=== PATIENT | female | born 1930 | race Caucasian/White ===

== ENCOUNTER → 2017-02-28 | Outpatient (REF) ==
[~2017-02-28] MED LIST: ARICEPT 5MG PO; BENICAR; CALCIUM600 M2 PO; FENTANYL 25 MCG TOP; FERROUS SU325 MG/TAB PO; FOLIC ACID PO; FORTEO SC; FORTEO250 MCG/ML SC; FOSAMAX5 MG; IRON325 M1 PO; LEVAQUIN 2250 MG/TAB PO; LORTAB 5/500 501 TAB; MELOXICAM; MELOXICAM15 MG PO; MUCINEX 60600 MG/TAB PO; MUCINEX D 600 M1 TER PO; NORCO 325 MG-51 TAB PO; PRINCIPEN500 MG PO; PRINIVIL10 MG PO; ROCEPHIN1 GM IV; SEPTRA DS 8001 TAB PO; SIMVASTATIN10 MG PO; TYLENOL 500MG500 MG PO; TYLENOL EXTRA500 M1 PO; ULTRAM 50MG TAB50 MG; ULTRAM 50MG TAB50 MG PO; VITAMIN C500 MG PO; VITAMIN D1000 IU PO; ZOCOR40 MG PO; [UNRECOGNIZED DRUG - REMARK]
[2017-02-28 14:30] LABS: COLLECTION METHOD CLEAN CATCH
[2017-02-28 14:43] LABS: MUCOUS Present /lpf; PH 6 (5-8); SQUAMOUS EPITHELIAL 0-2 /hpf; URINE APPEARANCE Clear; URINE BACTERIA Rare /hpf; URINE BILIRUBIN Negative (NEGATIVE); URINE BLOOD Negative (NEGATIVE); URINE COLOR Yellow; URINE GLUCOSE Negative (NEGATIVE); URINE KETONE Negative (NEGATIVE); URINE LEUKOCYTE ESTERASE Negative (NEGATIVE); URINE PROTEIN(semi-quant) Negative (NEGATIVE); URINE RBC 0-2 /hpf; URINE UROBILINOGEN Negative (NEGATIVE)
== END ==
LOC: ZLAB.STJ 14:28
PROVIDERS: Family Medicine
DX: N39.0 Urinary tract infection, site not specified (principal)

== ENCOUNTER 2017-04-26 07:43 | Emergency (ER) | payer MEDICARE, BC ==
[~2017-04-26 07:43] MED LIST changes: +ZOCOR 40MG40 MG; -ZOCOR40 MG PO
[2017-04-26 07:53] VITALS: TEMP 97.9
[2017-04-26 08:52] LABS: BASO % 0.2 % (0.0-2.0); GRAN # 7.8 (1.4-6.5); GRAN % 87.3 % (42.2-75.2); LYMPH # 0.7 (1.2-3.4); LYMPH % 7.9 % (20.0-51.0); MEAN CELL VOLUME 92 fl (80.0-100.0); MEAN CORPUSCULAR HGB CONC 34 g/dl (33.0-37.0); MEAN PLATELET VOLUME 9.3 fl (7.4-10.4); MONO # 0.4 (0.1-0.6); MONO % 4.1 % (1.7-9.3); PLATELET COUNT 178 K/mm3 (130-400); RED BLOOD COUNT 3.67 M/mm3 (4.10-5.30); REDCELL DISTRIBUTION WIDTH-CV 11.9 % (11.5-14.5)
[2017-04-26 08:54] LABS: HEMATOCRIT 33.7 % (37.0-47.0); HEMOGLOBIN 11.4 g/dl (12.5-16.0); MEAN CORPUSCULAR HEMOGLOBIN 31 pg (27.0-31.0)
[2017-04-26 09:01] LABS: BILIRUBIN,TOTAL 0.6 mg/dL (0.0-1.0); CALCIUM 9.6 mg/dL (8.4-10.2); CREATININE, serum 0.68 mg/dL (0.52-1.25); POTASSIUM 3.1 mmol/L (3.4-5.0); TOTAL PROTEIN 6.8 gm/dL (6.4-8.2)
[2017-04-26 10:17] LABS: COLLECTION METHOD CATHETER
[2017-04-26 10:33] LABS: PH 7 (5-8); SQUAMOUS EPITHELIAL None Seen /hpf; URINE APPEARANCE Clear; URINE BACTERIA Rare /hpf; URINE BILIRUBIN Negative (NEGATIVE); URINE BLOOD 1+ (NEGATIVE); URINE COLOR Straw; URINE GLUCOSE Negative (NEGATIVE); URINE KETONE Negative (NEGATIVE); URINE LEUKOCYTE ESTERASE Negative (NEGATIVE); URINE NITRATE Positive (NEGATIVE); URINE PROTEIN(semi-quant) Negative (NEGATIVE); URINE RBC 0-2 /hpf; URINE UROBILINOGEN Negative (NEGATIVE)
[2017-04-26] MEDS ORDERED: MACROBID 1100 MG/CAP PO (11:21)
[2017-04-26 11:46] VITALS: BP 160/67; PULSE 76
== END 2017-04-26 11:45 | disposition home or self-care (01) ==
LOC: COL.ER 07:43
PROVIDERS: Emergency Medicine
DX: S09.90XA Unspecified injury of head, initial encounter (principal); S30.0XXA Contusion of lower back and pelvis, initial encounter; S50.812A Abrasion of left forearm, initial encounter; S20.222A Contusion of left back wall of thorax, initial encounter; S20.221A Contusion of right back wall of thorax, initial encounter; R26.81 Unsteadiness on feet; F03.90 Unspecified dementia, unspecified severity, without behavioral disturbance, psychotic disturbance, mood disturbance, and anxiety; M84.48XK Pathological fracture, other site, subsequent encounter for fracture with nonunion; M84.454K Pathological fracture, pelvis, subsequent encounter for fracture with nonunion; W19.XXXA Unspecified fall, initial encounter; Y92.10 Unspecified residential institution as the place of occurrence of the external cause; M81.0 Age-related osteoporosis without current pathological fracture
CPT/HCPCS: J1885; J7030

== ENCOUNTER 2017-05-31 07:45 | Emergency (ER) | payer MEDICARE, BC ==
[~2017-05-31] VITALS: Ht 162.6 cm; Wt 52.3 kg
[2017-05-31 07:45] VITALS: TEMP 96.8
[~2017-05-31 07:45] MED LIST changes: +MACROBID 1100 MG/CAP PO
[2017-05-31 08:12] LABS: BASO % 0.2 % (0.0-2.0); EOS % 0.1 % (0-4.0); GRAN # 7.1 (1.4-6.5); GRAN % 71.5 % (42.2-75.2); HEMATOCRIT 39.9 % (37.0-47.0); HEMOGLOBIN 13.2 g/dl (12.5-16.0); LYMPH # 2.3 (1.2-3.4); LYMPH % 22.5 % (20.0-51.0); MEAN CELL VOLUME 93 fl (80.0-100.0); MEAN CORPUSCULAR HEMOGLOBIN 31 pg (27.0-31.0); MEAN CORPUSCULAR HGB CONC 33 g/dl (33.0-37.0); MEAN PLATELET VOLUME 9.7 fl (7.4-10.4); MONO # 0.5 (0.1-0.6); MONO % 5.3 % (1.7-9.3); PLATELET COUNT 205 K/mm3 (130-400); RED BLOOD COUNT 4.28 M/mm3 (4.10-5.30); REDCELL DISTRIBUTION WIDTH-CV 12.1 % (11.5-14.5)
[2017-05-31 08:22] LABS: ALBUMIN 4.4 gm/dL (3.5-5.0); BILIRUBIN,TOTAL 0.7 mg/dL (0.0-1.0); CALCIUM 9.5 mg/dL (8.4-10.2); CREATININE, serum 0.63 mg/dL (0.52-1.25); POTASSIUM 3.2 mmol/L (3.4-5.0); TOTAL PROTEIN 7.6 gm/dL (6.4-8.2)
[2017-05-31 08:38] LABS: COLLECTION METHOD CATHETER
[2017-05-31 08:48] LABS: URINE COLOR Yellow
[2017-05-31 08:49] LABS: PH 6 (5-8); URINE APPEARANCE Hazy; URINE BILIRUBIN Negative (NEGATIVE); URINE BLOOD Negative (NEGATIVE); URINE GLUCOSE Negative (NEGATIVE); URINE KETONE Trace (NEGATIVE); URINE LEUKOCYTE ESTERASE Trace (NEGATIVE); URINE NITRATE Positive (NEGATIVE); URINE PROTEIN(semi-quant) 2+ (NEGATIVE); URINE UROBILINOGEN Negative (NEGATIVE)
[2017-05-31 08:52] LABS: MUCOUS Present /lpf; SQUAMOUS EPITHELIAL None Seen /hpf; URINE BACTERIA Rare /hpf
[2017-05-31] MEDS ORDERED: CEFTIN500 MG PO (12:03)
[2017-05-31 12:16] VITALS: BP 169/74; PULSE 64
== END 2017-05-31 13:27 | disposition home or self-care (01) ==
LOC: COL.ER 07:45
PROVIDERS: Nurse Practitioner
DX: S00.83XA Contusion of other part of head, initial encounter (principal); N39.0 Urinary tract infection, site not specified; F03.90 Unspecified dementia, unspecified severity, without behavioral disturbance, psychotic disturbance, mood disturbance, and anxiety; M81.0 Age-related osteoporosis without current pathological fracture; Z87.891 Personal history of nicotine dependence; Z87.81 Personal history of (healed) traumatic fracture; Z98.51 Tubal ligation status; Z96.642 Presence of left artificial hip joint; Z98.890 Other specified postprocedural states; W19.XXXA Unspecified fall, initial encounter; Y92.121 Bathroom in nursing home as the place of occurrence of the external cause

== ENCOUNTER 2018-11-17 13:39 | Inpatient (IN) | payer MEDICARE, BC ==
[~2018-11-17] VITALS: Ht 162.6 cm; Wt 54.5 kg
[~2018-11-17 13:39] MED LIST changes: +CEFTIN500 MG PO
[2018-11-17 14:29] LABS: HEMATOCRIT 39.5 % (37.0-47.0); HEMOGLOBIN 13.3 g/dl (12.5-16.0); MEAN CELL VOLUME 93 fl (80.0-100.0); MEAN CORPUSCULAR HEMOGLOBIN 31 pg (27.0-31.0); MEAN CORPUSCULAR HGB CONC 34 g/dl (33.0-37.0); MEAN PLATELET VOLUME 9.2 fl (7.4-10.4); PLATELET COUNT 245 K/mm3 (130-400); RED BLOOD COUNT 4.27 M/mm3 (4.10-5.30); REDCELL DISTRIBUTION WIDTH-CV 12.2 % (11.5-14.5)
[2018-11-17 14:48] LABS: ALANINE AMINOTRANSFERASE < 6 U/L (9-52); ALBUMIN 4.4 gm/dL (3.5-5.0); ALKALINE PHOSPHATASE 76 U/L (50-136); ANION GAP 16 mmol/L (7-16); AST,SGOT 24 U/L (15-37); BILIRUBIN,TOTAL 0.7 mg/dL (0.0-1.0); BLOOD UREA NITROGEN 34 mg/dL (7-17); C-REACTIVE PROTEIN 2.5 mg/dL (0.0-0.9); CALCIUM 10.4 mg/dL (8.4-10.2); CARBON DIOXIDE 28 mmol/L (22-30); CHLORIDE 100 mmol/L (98-107); GLUCOSE 200 mg/dL (74-106); POTASSIUM 3.9 mmol/L (3.4-5.0); SODIUM 144 mmol/L (137-145); TOTAL PROTEIN 7.8 gm/dL (6.4-8.2)
[2018-11-17 15:25] LABS: GASTROCCULT POSITIVE
[2018-11-17 15:32] LABS: pH GASTRIC CONTENTS 4
[2018-11-17 15:45] LABS: COLLECTION METHOD CATHETER
[2018-11-17 15:53] LABS: BAND 2 % (0-10); LYMPHOCYTE 3 % (20.0-51.0); NEUTROPHILS 89 % (42.0-75.2); PLATELET ESTIMATE NORMAL (NORMAL)
[2018-11-17 16:12] LABS: MUCOUS Present /lpf; PH 5 (5-8); URINE APPEARANCE Cloudy; URINE BACTERIA None Seen /hpf; URINE BILIRUBIN Negative (NEGATIVE); URINE BLOOD 1+ (NEGATIVE); URINE COLOR Amber; URINE GLUCOSE 1+ (NEGATIVE); URINE KETONE Trace (NEGATIVE); URINE LEUKOCYTE ESTERASE Trace (NEGATIVE); URINE NITRATE Negative (NEGATIVE); URINE PROTEIN(semi-quant) 2+ (NEGATIVE); URINE UROBILINOGEN Negative (NEGATIVE)
[2018-11-17 18:20] VITALS: BP 177/76; PULSE 85; TEMP 99.2
[2018-11-17] MEDS ORDERED: FOSAMAX 70MG TA70 MG PO (19:31)
[2018-11-17] MEDS ORDERED: TYLENOL 8 HR PO (19:36)
[2018-11-17] MEDS ORDERED: COLACE 100100 MG/CAP PO (19:37)
[2018-11-17] MEDS ORDERED: DITROPAN XL10 MG PO (19:38)
[2018-11-17] MEDS ORDERED: ARICEPT10 MG PO (19:39)
[2018-11-17] MEDS ORDERED: FERRO-TIME325 MG PO (19:41)
[2018-11-17] MEDS ORDERED: LEADER CLE17 GM/Dose PO (19:42)
[2018-11-17] MEDS ORDERED: XALATAN EYE DROPS OD (19:49)
[2018-11-17] MEDS ORDERED: PHENERGAN25 MG RC (19:50)
[2018-11-17 20:00] VITALS: BP 185/87; PULSE 96; TEMP 97.7
--- NOTE | 2018-11-17 22:46 | NUR ---
5 PAGE HISTORY ASSESSMENT COMPLETED ABLE WITH PT'S DEMENTIA. PT HAS HAD ONE DARK TARRY EMESIS SINCE ADMISSION. MORPHINE ORDER OBTAINED FOR PAIN PT DID REPEAT, "IT HURTS."
[2018-11-17 23:48] VITALS: BP 150/71; PULSE 82; TEMP 97.8
[2018-11-18 03:41] VITALS: BP 138/51; PULSE 81; TEMP 98.3
[2018-11-18 06:27] LABS: BASO % 0.1 % (0.0-2.0); GRAN # 10.9 (1.4-6.5); LYMPH # 1.4 (1.2-3.4); LYMPH % 10.9 % (20.0-51.0); MEAN CELL VOLUME 97 fl (80.0-100.0); MEAN CORPUSCULAR HGB CONC 33 g/dl (33.0-37.0); MEAN PLATELET VOLUME 9.5 fl (7.4-10.4); MONO # 0.8 (0.1-0.6); MONO % 5.8 % (1.7-9.3); PLATELET COUNT 178 K/mm3 (130-400); RED BLOOD COUNT 2.81 M/mm3 (4.10-5.30); REDCELL DISTRIBUTION WIDTH-CV 12.4 % (11.5-14.5)
[2018-11-18 06:40] LABS: ALANINE AMINOTRANSFERASE < 6 U/L (9-52); ALBUMIN 2.7 gm/dL (3.5-5.0); ALKALINE PHOSPHATASE 38 U/L (50-136); ANION GAP 7 mmol/L (7-16); AST,SGOT 18 U/L (15-37); BILIRUBIN,TOTAL 0.3 mg/dL (0.0-1.0); BLOOD UREA NITROGEN 46 mg/dL (7-17); CARBON DIOXIDE 25 mmol/L (22-30); CHLORIDE 112 mmol/L (98-107); CREATININE, serum 0.87 (0.52-1.25); GLUCOSE 123 mg/dL (74-106); MAGNESIUM 1.8 mg/dL (1.6-2.3); PHOSPHOROUS 2.3 mg/dL (2.5-4.5); POTASSIUM 3.6 mmol/L (3.4-5.0); SODIUM 143 mmol/L (137-145); TOTAL PROTEIN 5.4 gm/dL (6.4-8.2)
[2018-11-18 06:49] LABS: HEMATOCRIT 27.2 % (37.0-47.0); HEMOGLOBIN 8.9 g/dl (12.5-16.0); MEAN CORPUSCULAR HEMOGLOBIN 32 pg (27.0-31.0)
[2018-11-18 07:17] VITALS: BP 128/74; PULSE 86; TEMP 98.6
[2018-11-18 11:12] VITALS: BP 140/56; PULSE 68; TEMP 98.1
--- NOTE | 2018-11-18 11:25 | NUR ---
SW met with the patient and her sons Juliocesar and Dragan to discuss a discharge plan. The pt was sleeping and Juliocesar responded to assessment questions. The pt lives at [facility] in room 12. The pt receives assistance with all ADLs and has a walker; son reports she walk slowly and not very far before she gets winded. The pt's PCP is Jcarlos Carreno APRN and pt receives medications from [facility]. The pt does have advanced directives in the EMR. The pt's sons and DPOA-HCs will discuss pt's discharge plan then inform the team of decision. SW will continue to follow to assist with discharge recommendations. DPOA for HC:1) Juliocesar 2)Dragan 3) Kale
--- NOTE | 2018-11-18 11:27 | NUR ---
First visit from the manager technical support. No needs right now.
--- NOTE | 2018-11-18 16:43 | NUR ---
CAPRI spoke to the pt's DPOA-HCs regarding comfort care. The pt's DPOA-HCs chose to have the pt go to the [facility]. CAPRI faxed the referral and spoke with Odilon at [facility]. Odilon reports we need to know which physician follow. CAPRI contacted the pt's physician office. CAPRI will follow up tomorrow; nurse practicioner was no longer in the office. CAPRI left message. CAPRI will continue to follow.
--- NOTE | 2018-11-18 18:00 | NUR ---
Patient has been resting most the day. She has not been trying to get or seems to be any pain. Her family hae been at bedside all day. No vomiting this shift. Her family has decided to have her placed on comfort care and discharge with Hospice tomorrow. Patient for most the has been sleeping. She has been alert a few times but unable to have a conversation or answer questions. No other changes at this time. Call light within reach.
--- NOTE | 2018-11-18 20:00 | NUR ---
PATIENT IS CONFUSED. ADMITED FOR SBO & GI BLEED. NO BLOODY EMESIS OR STOOL NOTED AT THIS TIME. PATIENT INCONTINENT OF BOWL/BLADDER, BRIEF INPLACE. VSS. PATIENT SEEMS RESTLESS. GAVE PRN ROXINOL. SON AT BEDSIDE. PATIENT IS ON COMFORT CARES WITH PLANS TO TRANSFER TO HOSPICE HOUSE TOMORROW. DNR. LEFT FORARM IV. HEAD TO TOE ASSESSMENT COMPLETE. PATIENT CHANGED AND REPOSITIONED. CALL LIGHT IN REACH. BED ALARM ON. NO OTHER NEEDS. SON PLANS TO STAY THE NIGHT.
[2018-11-18 20:42] VITALS: BP 144/51; PULSE 72; TEMP 97.5
--- NOTE | 2018-11-19 09:02 | NUR ---
CAPRI contacted the pt's PCP about following care at the [facility]. The nurse reports that she would like to ask if [facility] physician would follow pt care. CAPRI contacted Odilon at the [facility]. Odilon advised CAPRI that she would fax pt record to physician. CAPRI will continue to follow.
[2018-11-19] MEDS ORDERED: TYLENOL SU650 MG/SUP RC (10:45)
[2018-11-19] MEDS ORDERED: RT ALBUTER2.5 MG/0.5 IH (10:45)
[2018-11-19] MEDS ORDERED: DULCOLAX S10 MG/SUPP RC (10:50)
[2018-11-19] MEDS ORDERED: ZOFRAN ODT4 MG PO (10:50)
[2018-11-19] MEDS ORDERED: ROXANOL 20MG20 MG/ML SL (10:51)
[2018-11-19] MEDS ORDERED: LORAINT PO (10:51)
--- NOTE | 2018-11-19 18:00 | NUR ---
Patient has been sleeping most the day. She was more awake this morning and for a little while this afternoon. Her family has been at bedside the entire day. She is not able to answer questions when asked about pain but did not appear to be in any pain this shift. She is mostly resting comfortably. No other changes at this time. Call light within reach.
[2018-11-19 19:42] VITALS: BP 166/67; PULSE 84; TEMP 98.8
--- NOTE | 2018-11-19 21:00 | NUR ---
Pt. laying in bed with son at bedside. Pt. is on comfort care. Assessment complete. INT to lt. forearm patent. Pt. resting quietly at this time. Son denies needs at this time. Call light within reach.
--- NOTE | 2018-11-20 06:07 | NUR ---
Pt. remains unresponsive at this time. Son at bedside. Pt. does not appear to be in any pain per. FLACC scale. Son denies needs at this time.
--- NOTE | 2018-11-20 07:00 | NUR ---
Report received from KENTON Sherman. PT awakens to family at bedside, assisted with attempting to sponge mouth but pt did not seem to want this. Family at beds, will continue to monitor.
[2018-11-20 07:36] VITALS: BP 170/69; PULSE 74
--- NOTE | 2018-11-20 09:55 | NUR ---
Assessment charted. Pt in bed resting, does not wake up until giving IV protonix and then woke up and c/o discomfort to IV site wiht trying to withdraw arm. Looks at family, does not verbalize anything, does not appear in any discomfort other than IV site. Fmaily at bedside, will prep for dischage and continue to monitor.
[2018-11-20 10:05] VITALS: BP 170/69; PULSE 74; TEMP 98.8
--- NOTE | 2018-11-20 10:07 | NUR ---
The pt is to discharge today, 8-14 to the [facility]. CAPRI informed the pt's family, hospitalist, PA and pt's nurse all were in agreeance. CAPRI to fax discharge orders. CPARI presented the IM form to the pt's DPOA-HC. The DPOA-HC understood and signed the form. A copy was provided to the DPOA-HC and original was placed in the chart. There are no additional needs at this time.
--- NOTE | 2018-11-20 10:32 | NUR ---
Discharge completed at this time. Pt transferred via cart with EMS to hospice. Report cvalled to Hospice [facility]. Pt left with all belongings, given to family, they will meet EMS at hospice house. IV to LF left in place, ok per hospice nurse. Criteria met.
== END 2018-11-20 10:36 | disposition hospice, inpatient (51) | DRG 381 ==
LOC: COL.ER 13:39 → SURG 16:05
PROVIDERS: Physician Assistant; ADMIT Family Medicine
DX: K31.1 Adult hypertrophic pyloric stenosis (principal); E87.2 Acidosis; F01.50 Vascular dementia, unspecified severity, without behavioral disturbance, psychotic disturbance, mood disturbance, and anxiety; E78.5 Hyperlipidemia, unspecified; Z96.642 Presence of left artificial hip joint; E86.0 Dehydration; K31.89 Other diseases of stomach and duodenum; R73.9 Hyperglycemia, unspecified; Z66 Do not resuscitate; M81.0 Age-related osteoporosis without current pathological fracture; Z87.891 Personal history of nicotine dependence
CPT/HCPCS: 99222-AI; 99231-AI; 99232-AI; 99238; A4216; C9113; J0696; J2060; J2270; J2405; J7030; J7040; Q9967